=== PATIENT | male | born 1970 | race Caucasian/White ===

== ENCOUNTER 2020-05-09 06:14 | Day surgery (SDC) | payer OTHER ==
[2020-05-05 15:28] VITALS: BMI 29.4
[2020-05-09] MEDS ORDERED: EPHEDRINE SULFATE/0.9% NACL/PF 50 MG/10 ML SYRINGE NR ONE (07:05)
[2020-05-09] MEDS ORDERED: ONDANSETRON 4 MG/2 ML VIAL ONE (07:05)
[2020-05-09] MEDS ORDERED: ceFAZolin SODIUM 1 GM VIAL ONE (07:05)
[2020-05-09] MEDS ORDERED: KETOROLAC TROMETHAMINE 30 MG/1 ML VIAL ONE (07:05)
[2020-05-09] MEDS ORDERED: DEXAMETHASONE SOD PHOSPHATE 4 MG/1 ML VIAL ONE (07:05)
[2020-05-09] MEDS ORDERED: LIDOCAINE HCL/PF 2% SDV 5ML VIAL ONE (07:05)
[2020-05-09] MEDS ORDERED: PROPOFOL 20 ML ONE ×2 (07:05)
[2020-05-09] MEDS ORDERED: SODIUM CHLORIDE 0.9% P/F 10 ML VIAL IJ ONE (07:05)
[2020-05-09] MEDS ORDERED: MIDAZOLAM HCL 2 MG/2 ML SINGLE DOSE VIAL ONE (07:06)
[2020-05-09] MEDS ORDERED: SUCCINYLCHOLINE CHLORIDE 200 MG/10 ML SYRINGE ONE (07:07)
[2020-05-09] MEDS ORDERED: LIDOCAINE 1%/EPI 1:100000 (20 ML MULTI DOSE VIAL) ONE (07:11)
[2020-05-09] MEDS ORDERED: oxyCODONE HCL 5 MG TABLET PO PRN ×2 (07:40)
[2020-05-09] MEDS ORDERED: ONDANSETRON 4 MG/2 ML VIAL IVPUSH PRN (07:40)
[2020-05-09] MEDS ORDERED: LACTATED RINGERS SOLUTION 1,000 ML IV SCH (07:45)
[2020-05-09] MEDS ORDERED: LIDOCAINE 1%/EPI 1:100000 (20 ML MULTI DOSE VIAL) IJ ONE (08:12)
[2020-05-09] MEDS ORDERED: BUPIVACAINE HCL/PF 0.5% (5MG/ML) 10 ML VIAL IJ ONE (08:28)
[2020-05-09 08:48] VITALS: TEMP 97.3
[2020-05-09] MEDS ORDERED: oxyCODONE HCL 5 MG TABLET ONE (09:44)
[2020-05-09 10:12] VITALS: BP 125/75; PULSE 64
== END 2020-05-09 10:30 | disposition home or self-care (01) ==
LOC: FASU 06:14
PROVIDERS: ATTEND Orthopaedic Surgery
PROC: 0SBC4ZZ Excision of Right Knee Joint, Percutaneous Endoscopic Approach (ICD-10-PCS; principal; 2020-05-09 08:12)
DX: M23.221 Derangement of posterior horn of medial meniscus due to old tear or injury, right knee (principal); I10 Essential (primary) hypertension
CPT/HCPCS: 94760

== ENCOUNTER 2023-04-14 04:49 | Day surgery (SDC) | payer BC ==
[2023-04-09 12:24] VITALS: BMI 27.9
[2023-04-14 08:54] VITALS: TEMP 98
[2023-04-14 09:21] VITALS: RESP 18
[2023-04-14 09:39] VITALS: BP 118/77; PULSE 70
== END 2023-04-14 10:00 | disposition home or self-care (01) ==
LOC: JASU-ENDO 04:49
PROVIDERS: ATTEND Internal Medicine Gastroenterology
PROC: 0DBP8ZX Excision of Rectum, Via Natural or Artificial Opening Endoscopic, Diagnostic (ICD-10-PCS; 2023-04-14)
PROC: 0DBM8ZX Excision of Descending Colon, Via Natural or Artificial Opening Endoscopic, Diagnostic (ICD-10-PCS; principal; 2023-04-14 08:00)
DX: Z12.11 Encounter for screening for malignant neoplasm of colon (principal); D12.8 Benign neoplasm of rectum; D12.4 Benign neoplasm of descending colon; K64.8 Other hemorrhoids
CPT/HCPCS: 88305-TC

== ENCOUNTER 2023-10-16 04:29 | Day surgery (SDC) | payer BC ==
[2023-10-15 13:39] VITALS: BMI 27.2
[2023-10-16] MEDS ORDERED: LIDOCAINE HCL/PF 1% SDV 5ML VIAL ONE (07:38)
[2023-10-16] MEDS: LIDOCAINE HCL 1% PRESERVATIVE FREE - 30ML VIAL IJ ONE ×2 (11:14)
[2023-10-16 11:44] VITALS: BP 123/83; PULSE 72; RESP 20; TEMP 98.2
== END 2023-10-16 12:20 | disposition home or self-care (01) ==
LOC: JASU-SURG 04:29
PROVIDERS: ATTEND Pain Medicine Pain Medicine
PROC: 01HY3MZ Insertion of Neurostimulator Lead into Peripheral Nerve, Percutaneous Approach (ICD-10-PCS; principal; 2023-10-16 10:30)
DX: G89.4 Chronic pain syndrome (principal); M54.31 Sciatica, right side
CPT/HCPCS: 64555; C1778